=== PATIENT | male | born 1950 | race Caucasian/White ===

== ENCOUNTER 2017-01-15 12:50 | Emergency (ER) | payer SELFPAY ==
--- NOTE | 2017-01-15 13:35 | ED ORDER SUMMARY ---
..... Patient: FIORELLA SHAHID OrderSheet [facility] VisitID: [id number] [place] [address] 66y, M Registration Date/Time: 01/15/2017 ORDER SHEET Weight: 58.9 kg (stated) Allergies: None GENERAL ORDERS: CT Head wo Cont Urgent (12:55 01/15/2017 Gissel Marley) (Ack 13:00 Dia) (13:50 Ruth R.N.) CT Cervical Spine wo Cont Urgent (12:55 01/15/2017 Gissel Marley) (Ack 13:00 Dia) (13:50 Ruth R.N.) Chest 1V Urgent (12:56 01/15/2017 Gissel Marley) (Ack 13:00 Dia) Prosthetic Technician (Continuous) (trauma) (12:56 01/15/2017 Gissel Marley) (Ack 13:00 Dia) (13:14 Ruth R.N.) CBC w Diff Urgent (12:57 01/15/2017 Gissel Marley) (Ack 12:58 Dia) (13:14 Ruth R.N.) CMP Urgent (12:57 01/15/2017 Gissel Marley) (Ack 12:58 Dia) (13:14 Ruth R.N.) UA-Culture if indicated Urgent (12:57 01/15/2017 Gissel Marley) (Ack 12:58 Dia) (13:41 Nakia R.N.) PT with INR Urgent (12:57 01/15/2017 Gissel Marley) (Ack 12:58 Dia) (13:14 Ruth R.N.) PTT Urgent (12:57 01/15/2017 Gissel Marley) (Ack 12:58 Dia) (13:14 Ruth R.N.) D-Dimer Urgent (12:57 01/15/2017 Gissel Marley) (Ack 12:58 Dia) (13:14 Ruth R.N.) Troponin-I Urgent (12:57 01/15/2017 Gissel Marley) (Ack 12:59 Dia) (13:14 KWilliams R.N.) Lipase Urgent (12:57 01/15/2017 Gissel Marley) (Ack 12:59 WAlupis) (13:14 KWilliams R.N.) Ethyl Alcohol Urgent (12:57 01/15/2017 Gissel Marley) (Ack 12:59 Dia) (13:14 Eliseams R.N.) Fibrinogen Level Urgent (12:57 01/15/2017 Gissel Marley) (Ack 12:59 Dia) (13:14 Eliseams R.N.) TSH Urgent (12:57 01/15/2017 Gissel Marley) (Ack 12:59 Dia) (13:15 KWilliams R.N.) Pulse oximeter (12:57 01/15/2017 Gissel Marley) (Ack 13:00 Dia) (13:14 Eliseams R.N.) MEDICATION ORDERS: IV FLUIDS: IV NS : initial bolus 1000 mL (1000 mL/hr), then none - for X1 (NOW) (12:57 01/15/2017 Gissel Marley) (13:41 Nakia R.N.) Fentanyl IV 50 mcg (HIGH ALERT MEDICATION, NOW) (14:00 01/15/2017 Nakia R.N. verbal order read back to Gissel Marley) (14:01 Nakia RMumtazN.) ORDER SHEET NOTES: [Electronically signed by Hernesto Fish Dr. (18:11 01/15/2017)] [Electronically signed by Linus Clay R.N. (18:03 01/17/2017)] [Electronically locked/signed by Linus Clay R.N. (18:03 01/17/2017)]
--- NOTE | 2017-01-15 13:35 | ED NURSING NOTES ---
Clinical Report - Nurses [facility] [place] [address] 01/15/2017 12:49 [id number] Triage time 12:52. Acuity: LEVEL 1. Chief Complaint: WEAKNESS and NUMBNESS and (Left side deficit with numbness). MARITZA COMA SCORE: Henning Coma Scale: 15- eyes open spontaneously (4); best verbal response- oriented x 4 (5); best motor response- obeys commands (6). --13:00 Neris Armas R.N. 12:52 01/15/17. BP: 131/96. HR: 78. RR: 22. O2 saturation: 96%. --13:00 Neris Armas R.N. Weight: 58.9 kg stated. Height/Length: 68 inches Per Patient. BMI: 19.7. --12:56 Neris Armas R.N. Medications None. --12:58 Neris Armas R.N. Allergies None. --12:58 Neris Armas R.N. History Arrived by EMS. Historian: EMS. This started just prior to arrival. PAST MEDICAL HX: No history of diabetes mellitus or hypertension. Immunizations: up-to-date. SOCIAL HX: Heavy alcohol use. History of heavy drug use: methamphetamines. Recently used drugs yesterday. --13:00 Neris Armas R.N. PHYSICAL ASSESSMENT To room via stretcher. GENERAL / NEURO / PSYCH: Appears in distress. The patient is disoriented to situation. Moves extremities with decreased movement of the right upper and left upper extremity. Strength is unequal. She has had weakness. RESPIRATORY: Respirations not labored. SKIN: Skin is warm and dry. --13:01 Neris Armas R.N. NURSING PROGRESS NOTES Patient gowned. Patient transported to CT with nurse and tech. (13:01). --13:01 Neris Amras R.N. Point of care testing: performed by nurse. Glucose: 105. --13:02 Neris Armas R.N. ( assumed care of pt- brought pt back from CT, placed on to monitor, pt in SR on monitor, NIH score completed, pt a/o x 4, speach clear, smells strongly of etoh, states he drinks rafaela 750ml of rum daily, mir being placed and 2nd line established, pt c/o pain "all over" pts oral cavity dried with blood, mouth cleaned with wash cloth, waiting pending labs and ct result for further poc.). --13:23 Linus Clay R.N. 13:23 01/15/17. BP: 126/84. HR: 73. RR: 15. O2 saturation: 96%. Pain level now: 11/23. --13:24 Linus Clay R.N. 13:09 01/15/2017 Site #1 started via IV in the right with an 18g angiocath; one attempt. Blood drawn: rainbow set. Labeled in the presence of the patient and sent to the lab. Saline lock flushed with saline (placed prior to this RN assuming care). --13:24 Linus Clay R.N. 13:25 01/15/2017 Site #2 started via IV forearm with an 18g angiocath; one attempt. Saline lock flushed with 10 mL saline. --13:25 Linus Clay R.N. Cardiac rhythm: (SR). Patient identifiers checked. Call light placed in reach. Side rails up x 2. Bed placed in lowest position. Brakes of bed on. ( ivf infusing as ordered). --13:26 Linus Clay R.N. ( pcxr at bedside). --13:27 Linus Clay R.N. Cardiac rhythm: (SR). Supply Chain Intern provided for the pelvic exam by the physician. ( friend at bedside,). --13:32 Linus Clay R.N. Patient waiting for lab, radiology and CT results. --13:32 Linus Clay R.N. 13:32 01/15/17. BP: 125/92. HR: 76. RR: 21. O2 saturation: 96%. --13:32 Linus Clay R.N. ( MD at bedside explaining results of CT Rad results, pt has C1 C2 fx, plan is to transport to [facility]). --13:35 Linus Clay R.N. ( pt reports last po intake was guest experience captain, 1130, pt drank rum). --13:39 Linus Clay R.N. 13:26 01/15/2017 Started bag #1 1000 mL IV Fluids IV NS (Saline); at 1000 mL/hr via site #2. Allergies verified and confirmed 5 rights. IV patency established. IV site checked: no pain, redness, or swelling. IV flushed thoroughly pre- and post-medication administration (to gravity). --13:41 Linus Clay R.N. Patient waiting for transportation and treatment bed / room and transfer. --13:45 Linus Clay R.N. ( on phone with [facility], preparing transfer sheet). --13:47 Linus Clay R.N. Cardiac rhythm: (SR). ( pt requested his sister Kristie in [place] be notified and oks for information to be provided,). --13:48 Linus Clay R.N. 13:48 01/15/17. BP: 122/85. HR: 76. RR: 21. O2 saturation: 97% on room air. Temp: 97.9 F. Pain level now: 11/23. --13:49 Linus Clay R.N. ( pt reports "my left leg is twitching and hurts" notified with VO for 50mcg fentanyl iv). --13:51 Linus Clay R.N. ( pt has increased movement in left lower extremity, pt requires frequent reminders to remain still, ccollar remains in place). --13:51 Linus Clay R.N. drug abuse technician, pulse oximeter and NIBP monitor placed on patient; cardiac cath tech- Lead II and V5; monitor alarms on (ongoing). 14 fr mir catheter placed. During procedure hand hygiene observed and sterile equipment and aseptic technique used. Return of 200 mL yellow-colored urine; attached to bedside drainage bag positioned below the bladder and secured with velcro and stabilization device. He tolerated procedure well (placed by Blanka DICKSON). Call light placed in reach. Patient waiting for transportation. --13:58 Linus Clay R.N. ( MD updated pt on transfer to [facility]- plan is pt will go air). --13:58 Linus Clay R.N. ( pt reports pain after fentanyl "better" RN remains 1:1 with pt,). --13:59 Linus Clay R.N. MARITZA COMA SCORE: Maritza Coma Scale: 15- eyes open spontaneously (4); best verbal response- oriented x 4 (5); best motor response- obeys commands (6). ABUSE ASSESSMENT: No report of abuse. --14:00 Linus Clay R.N. Reassessment after medication administered (improvement in pain following fentanyl). --14:00 Linus Clay R.N. 13:56 01/15/2017 Fentanyl IVP 50 mcg given. via site #2. Allergies verified, confirmed 5 rights and sedative warning given to the patient and patient's solution specialist. IV patency established. IV site checked: no pain, redness, or swelling. IV flushed thoroughly pre- and post-medication administration. IVP given by RN. --14:01 Linus Clay R.N. 14:04 01/15/17. BP: 132/86. HR: 76. RR: 21. O2 saturation: 97%. Temp: 97.9 F. Pain level now: 08/26. --14:05 Linus Clay R.N. ( chart printed and report faxed to [facility]). --14:06 Linus Clay R.N. Monitoring of patient in place. Patient gowned. Reassurance given to the patient and patient's friends. --14:06 Linus Clay R.N. Patient waiting for transportation and transfer (waiting airlift). --14:07 Linus Clay R.N. Call light placed in reach. Side rails up x 2. Bed placed in lowest position. Brakes of bed on. --14:07 Linus Caly R.N. ( pt remains laying flat, ccollar in place, pt reports improvement in pain down to 2/10, remains a/o x 4, perrla, no change in voice or speech since this RN assumed care, pt cont unable to move his left arm, however reports sensation is equal to right arm.). --14:10 Linus Clay R.N. ( pt reports being thirsty, keeping pt NPO, pts mouth swabbed out with sponge, chapstick applied to lips for comfort.). --14:14 Linus Clay R.N. Patient waiting for transportation and transfer ([facility] eta 1420). --14:16 Linus Clay R.N. 14:18 01/15/17. BP: 125/84. HR: 76. RR: 17. --14:19 Linus Clay R.N. ( airlift arrived in ED). --14:20 Linus Clay R.N. DISPOSITION / DISCHARGE Departure time: 14:Jan 15 2017. Transported via helicopter by nurse and transport team with monitor, defibrillator, IV, O2 and emergency medications. Report was given in person. Report included patient's care, treatment, medications, reviewed medication reconcilliation, and condition (including any recent changes or anticipated changes). (Jasmyn esparza RN). ( pt being transferred to transport [facility]). --14:25 Linus Clay R.N. Departure time: 14:Jan 15 2017. --14:25 Linus Clay R.N. Locked/Released at 01/17/2017 18:03 by Linus Clay R.N.
--- NOTE | 2017-01-15 13:35 | ED ORDER SUMMARY ---
..... Patient: FIORELLA SHAHID OrderSheet [facility] VisitID: [id number] [place] [address] 66y, M Registration Date/Time: 01/15/2017 ORDER SHEET Weight: 58.9 kg (stated) Allergies: None GENERAL ORDERS: CT Head wo Cont Urgent (12:55 01/15/2017 Gissel Marley) (Ack 13:00 Dia) (13:50 Ruth R.N.) CT Cervical Spine wo Cont Urgent (12:55 01/15/2017 Gissel Marley) (Ack 13:00 Dia) (13:50 Ruth R.N.) Chest 1V Urgent (12:56 01/15/2017 Gissel Marley) (Ack 13:00 Dia) Capping Machine Operator (Continuous) (trauma) (12:56 01/15/2017 Gissel Marley) (Ack 13:00 Dia) (13:14 Ruth R.N.) CBC w Diff Urgent (12:57 01/15/2017 Gissel Marley) (Ack 12:58 Dia) (13:14 Ruth R.N.) CMP Urgent (12:57 01/15/2017 Gissel Marley) (Ack 12:58 Dia) (13:14 Ruth R.N.) UA-Culture if indicated Urgent (12:57 01/15/2017 Gissel Marley) (Ack 12:58 Dia) (13:41 Nakia R.N.) PT with INR Urgent (12:57 01/15/2017 Gissel Marley) (Ack 12:58 Dia) (13:14 Ruth R.N.) PTT Urgent (12:57 01/15/2017 Gissel Marley) (Ack 12:58 Dia) (13:14 Ruth R.N.) D-Dimer Urgent (12:57 01/15/2017 Gissel Marley) (Ack 12:58 Dia) (13:14 Ruth R.N.) Troponin-I Urgent (12:57 01/15/2017 Gissel Marley) (Ack 12:59 Dia) (13:14 KWilliams R.N.) Lipase Urgent (12:57 01/15/2017 Gissel Marley) (Ack 12:59 NDlupis) (13:14 KWilliams R.N.) Ethyl Alcohol Urgent (12:57 01/15/2017 Gissel Marley) (Ack 12:59 Dia) (13:14 Eliseams R.N.) Fibrinogen Level Urgent (12:57 01/15/2017 Gissel Marley) (Ack 12:59 Dia) (13:14 Eliseams R.N.) TSH Urgent (12:57 01/15/2017 Gissel Marley) (Ack 12:59 Dia) (13:15 KWilliams R.N.) Pulse oximeter (12:57 01/15/2017 Gissel Marley) (Ack 13:00 Dia) (13:14 Eliseams R.N.) MEDICATION ORDERS: IV FLUIDS: IV NS : initial bolus 1000 mL (1000 mL/hr), then none - for X1 (NOW) (12:57 01/15/2017 Gissel Marley) (13:41 Nakia R.N.) Fentanyl IV 50 mcg (HIGH ALERT MEDICATION, NOW) (14:00 01/15/2017 Nakia R.N. verbal order read back to Gissel Marley) (14:01 Nakia RMumtazN.) ORDER SHEET NOTES: [Electronically signed by Hernesto Fish Dr. (18:11 01/15/2017)] [Electronically signed by Linus Clay R.N. (18:03 01/17/2017)] [Electronically locked/signed by Linus Clay R.N. (18:03 01/17/2017)]
--- NOTE | 2017-01-15 13:35 | ED NURSING NOTES ---
Clinical Report - Nurses [facility] [place] [address] 01/15/2017 12:49 [id number] Triage time 12:52. Acuity: LEVEL 1. Chief Complaint: WEAKNESS and NUMBNESS and (Left side deficit with numbness). MARITZA COMA SCORE: Pelsor Coma Scale: 15- eyes open spontaneously (4); best verbal response- oriented x 4 (5); best motor response- obeys commands (6). --13:00 Neris Armas R.N. 12:52 01/15/17. BP: 131/96. HR: 78. RR: 22. O2 saturation: 96%. --13:00 Neris Armas R.N. Weight: 58.9 kg stated. Height/Length: 68 inches Per Patient. BMI: 19.7. --12:56 Neris Armas R.N. Medications None. --12:58 Neris Armas R.N. Allergies None. --12:58 Neris Armas R.N. History Arrived by EMS. Historian: EMS. This started just prior to arrival. PAST MEDICAL HX: No history of diabetes mellitus or hypertension. Immunizations: up-to-date. SOCIAL HX: Heavy alcohol use. History of heavy drug use: methamphetamines. Recently used drugs yesterday. --13:00 Neris Armas R.N. PHYSICAL ASSESSMENT To room via stretcher. GENERAL / NEURO / PSYCH: Appears in distress. The patient is disoriented to situation. Moves extremities with decreased movement of the right upper and left upper extremity. Strength is unequal. She has had weakness. RESPIRATORY: Respirations not labored. SKIN: Skin is warm and dry. --13:01 Neris Armas R.N. NURSING PROGRESS NOTES Patient gowned. Patient transported to CT with nurse and tech. (13:01). --13:01 Neris Armas R.N. Point of care testing: performed by nurse. Glucose: 105. --13:02 Neris Armas R.N. ( assumed care of pt- brought pt back from CT, placed on to monitor, pt in SR on monitor, NIH score completed, pt a/o x 4, speach clear, smells strongly of etoh, states he drinks rafaela 750ml of rum daily, mir being placed and 2nd line established, pt c/o pain "all over" pts oral cavity dried with blood, mouth cleaned with wash cloth, waiting pending labs and ct result for further poc.). --13:23 Linus Clay R.N. 13:23 01/15/17. BP: 126/84. HR: 73. RR: 15. O2 saturation: 96%. Pain level now: 11/23. --13:24 Linus Clay R.N. 13:09 01/15/2017 Site #1 started via IV in the right with an 18g angiocath; one attempt. Blood drawn: rainbow set. Labeled in the presence of the patient and sent to the lab. Saline lock flushed with saline (placed prior to this RN assuming care). --13:24 Linus Clay R.N. 13:25 01/15/2017 Site #2 started via IV forearm with an 18g angiocath; one attempt. Saline lock flushed with 10 mL saline. --13:25 Linus Clay R.N. Cardiac rhythm: (SR). Patient identifiers checked. Call light placed in reach. Side rails up x 2. Bed placed in lowest position. Brakes of bed on. ( ivf infusing as ordered). --13:26 Linus Clay R.N. ( pcxr at bedside). --13:27 Linus Clay R.N. Cardiac rhythm: (SR). Research And Development Scientist provided for the pelvic exam by the physician. ( friend at bedside,). --13:32 Linus Clay R.N. Patient waiting for lab, radiology and CT results. --13:32 Linus Clay R.N. 13:32 01/15/17. BP: 125/92. HR: 76. RR: 21. O2 saturation: 96%. --13:32 Linus Clay R.N. ( MD at bedside explaining results of CT Rad results, pt has C1 C2 fx, plan is to transport to [facility]). --13:35 Linus Clay R.N. ( pt reports last po intake was seating captain, 1130, pt drank rum). --13:39 Linus Clay R.N. 13:26 01/15/2017 Started bag #1 1000 mL IV Fluids IV NS (Saline); at 1000 mL/hr via site #2. Allergies verified and confirmed 5 rights. IV patency established. IV site checked: no pain, redness, or swelling. IV flushed thoroughly pre- and post-medication administration (to gravity). --13:41 Linus Clay R.N. Patient waiting for transportation and treatment bed / room and transfer. --13:45 Linus Clay R.N. ( on phone with [facility], preparing transfer sheet). --13:47 Linus Clay R.N. Cardiac rhythm: (SR). ( pt requested his sister Kristie in [place] be notified and oks for information to be provided,). --13:48 Linus Clay R.N. 13:48 01/15/17. BP: 122/85. HR: 76. RR: 21. O2 saturation: 97% on room air. Temp: 97.9 F. Pain level now: 11/23. --13:49 Linus Clay R.N. ( pt reports "my left leg is twitching and hurts" notified with VO for 50mcg fentanyl iv). --13:51 Linus Clay R.N. ( pt has increased movement in left lower extremity, pt requires frequent reminders to remain still, ccollar remains in place). --13:51 Linus Clay R.N. mobile solutions architect, pulse oximeter and NIBP monitor placed on patient; cook station- Lead II and V5; monitor alarms on (ongoing). 14 fr mir catheter placed. During procedure hand hygiene observed and sterile equipment and aseptic technique used. Return of 200 mL yellow-colored urine; attached to bedside drainage bag positioned below the bladder and secured with velcro and stabilization device. He tolerated procedure well (placed by Blanka DICKSON). Call light placed in reach. Patient waiting for transportation. --13:58 Linus Clay R.N. ( MD updated pt on transfer to [facility]- plan is pt will go air). --13:58 Linus Clay R.N. ( pt reports pain after fentanyl "better" RN remains 1:1 with pt,). --13:59 Linus Clay R.N. MARITZA COMA SCORE: Maritza Coma Scale: 15- eyes open spontaneously (4); best verbal response- oriented x 4 (5); best motor response- obeys commands (6). ABUSE ASSESSMENT: No report of abuse. --14:00 Linus Clay R.N. Reassessment after medication administered (improvement in pain following fentanyl). --14:00 Linus Clay R.N. 13:56 01/15/2017 Fentanyl IVP 50 mcg given. via site #2. Allergies verified, confirmed 5 rights and sedative warning given to the patient and patient's solar technician. IV patency established. IV site checked: no pain, redness, or swelling. IV flushed thoroughly pre- and post-medication administration. IVP given by RN. --14:01 Linus Clay R.N. 14:04 01/15/17. BP: 132/86. HR: 76. RR: 21. O2 saturation: 97%. Temp: 97.9 F. Pain level now: 08/26. --14:05 Linus Clay R.N. ( chart printed and report faxed to [facility]). --14:06 Linus Clay R.N. Monitoring of patient in place. Patient gowned. Reassurance given to the patient and patient's friends. --14:06 Linus Clay R.N. Patient waiting for transportation and transfer (waiting airlift). --14:07 Linus Clay R.N. Call light placed in reach. Side rails up x 2. Bed placed in lowest position. Brakes of bed on. --14:07 Linus Clay R.N. ( pt remains laying flat, ccollar in place, pt reports improvement in pain down to 2/10, remains a/o x 4, perrla, no change in voice or speech since this RN assumed care, pt cont unable to move his left arm, however reports sensation is equal to right arm.). --14:10 Linus Clay R.N. ( pt reports being thirsty, keeping pt NPO, pts mouth swabbed out with sponge, chapstick applied to lips for comfort.). --14:14 Linus Clay R.N. Patient waiting for transportation and transfer ([facility] eta 1420). --14:16 Linus Clay R.N. 14:18 01/15/17. BP: 125/84. HR: 76. RR: 17. --14:19 Linus Clay R.N. ( airlift arrived in ED). --14:20 Linus Clay R.N. DISPOSITION / DISCHARGE Departure time: 14:Jan 15 2017. Transported via helicopter by nurse and transport team with monitor, defibrillator, IV, O2 and emergency medications. Report was given in person. Report included patient's care, treatment, medications, reviewed medication reconcilliation, and condition (including any recent changes or anticipated changes). (Jasmyn esparza RN). ( pt being [facility]). --14:25 Linus Clay R.N. Departure time: 14:Jan 15 2017. --14:25 Linus Clay R.N. Locked/Released at 01/17/2017 18:03 by Linus Clay R.N.
--- NOTE | 2017-01-15 13:42 | DIAGNOSTIC IMAGING REPORT ---
PROCEDURE: CT CERVICAL SPINE W/O CONTRAST CLINICAL INDICATION: UPPER EXT PAIN/IMMOBILITY TECHNIQUE: Noncontrast axial images with sagittal and coronal reformations. COMPARISON: None. FINDINGS: Fracture of the C1 ring right posterior, nondisplaced Type 2 odontoid fracture with 7 mm posterior displacement of the tip of the odontoid, resulting in mild spinal stenosis. Severe degenerative changes at C4-5, C5-6 and C6-7. No additional fractures. Moderate bilateral C4-5 S5-6 and C6-7 foraminal stenosis. Lung apices are clear. Paraspinal soft tissues are unremarkable. IMPRESSION: 1. Nondisplaced C1 fracture 2. Type 2 odontoid fracture with displacement 3. Results discussed with Dr. Fish All CT scans at this facility use dose modulation, iterative reconstruction, and/or weight-based dosing when appropriate to reduce radiation dose to as low as reasonably achievable.
--- NOTE | 2017-01-15 13:43 | DIAGNOSTIC IMAGING REPORT ---
PROCEDURE: CT HEAD WITHOUT CONTRAST INDICATION: TRAUMA/INJURY TECHNIQUE: Noncontrast axial images with sagittal and coronal reformations. COMPARISON: None. FINDINGS: Motion artifacts. Nondisplaced C1 fracture. Mild cortical atrophy and white matter chronic ischemic changes. Normal ventricular system. No evidence of acute intracranial process. Complete opacification of the left frontal and maxillary sinus. Sinus disease of the bilateral ethmoid sinuses. Mastoids are clear. IMPRESSION: 1. Nondisplaced C1 fracture. See CT cervical spine report. 2. No acute intracranial abnormality 3. Mild atrophy white matter chronic ischemic changes 4. Sinusitis 5. Findings discussed with Dr. Fish at 01:35 p.m., [place] Standard Time
--- NOTE | 2017-01-15 14:04 | DIAGNOSTIC IMAGING REPORT ---
PROCEDURE: XR CHEST 1 VIEW INDICATION: LEFT SIDED WEAKNESS, TRAUMA TECHNIQUE: Portable AP view 01:29 p.m. COMPARISON: None. FINDINGS: Lungs are clear. The patient is rotated which may account for widening of the superior mediastinum. Heart size and pulmonary vessels are normal. Thorax is normal. IMPRESSION: 1. Widening of the superior mediastinum, probably due to rotation. Cannot exclude vascular injury. Correlate clinically 2. Results discussed with Dr. Fish
--- NOTE | 2017-01-17 18:04 | ED MAR SUMMARY ---
..... Medication Administration Record [facility] [address] [place] [address] Patient: FIORELLA SHAHID Visit ID: [id number] 66y, M Weight: 58.9 kg Height/Length: 68 in BMI: 19.7 ALLERGIES: None Start 13:26 01/15/2017 Linus Clay R.N. Medication Administered: IV NS (SALINE), Dose: IV Fluids, Rate: 1000 mL/hr, Dispensed: 1000 mL bag, Site: #2 forearm. Medication Ordered: IV NS : initial bolus 1000 mL (1000 mL/hr), then none - for X1 (NOW). Given 13:56 01/15/2017 Linus Clay R.N. Medication Administered: FENTANYL [IVP], Dose: 50 mcg IVP, Site: #2 forearm. Medication Ordered: Fentanyl IV 50 mcg (HIGH ALERT MEDICATION, NOW).
--- NOTE | 2017-01-17 18:04 | ED MAR SUMMARY ---
..... Medication Administration Record [facility] [address] [place] [address] Patient: FIORELLA SHAHID Visit ID: [id number] 66y, M Weight: 58.9 kg Height/Length: 68 in BMI: 19.7 ALLERGIES: None Start 13:26 01/15/2017 Linus Clay R.N. Medication Administered: IV NS (SALINE), Dose: IV Fluids, Rate: 1000 mL/hr, Dispensed: 1000 mL bag, Site: #2 forearm. Medication Ordered: IV NS : initial bolus 1000 mL (1000 mL/hr), then none - for X1 (NOW). Given 13:56 01/15/2017 Linus Clay R.N. Medication Administered: FENTANYL [IVP], Dose: 50 mcg IVP, Site: #2 forearm. Medication Ordered: Fentanyl IV 50 mcg (HIGH ALERT MEDICATION, NOW).
--- NOTE | 2017-01-17 18:04 | ED MED RECONCILIATION SUMMARY ---
Patient: JONATHAN SHAHIDMPER Medication Reconciliation Report [facility] VisitID: [id number] [address] [place] [address] 66y, M Registration Date/Time: 01/15/2017 Weight: 58.9 kg Height/Length: 68 in. BMI: 19.7 ALLERGIES: None The patient's Home Medications are listed below: NONE. The source(s) of the original Home Medication information: Not obtained. The following Medications were given to the patient in the Emergency Department: IV NS IV Fluids bolus 0, then 1000 mL/hr, administered: 01/15/2017 1:26:00 PM Fentanyl [IVP] IVP 50 mcg, administered: 01/15/2017 1:56:00 PM The following Medications were prescribed to the patient: None.
--- NOTE | 2017-01-17 18:04 | ED CLINICAL REPORT ---
Clinical Report - Physicians/Mid Levels [facility] [address] [place] [address] 01/15/2017 12:49 Patient: FIORELLA SHAHID Time Seen: 1250. Arrived- By ambulance. Historian- patient and EMS personnel. HISTORY OF PRESENT ILLNESS Chief Complaint: FALL. Location of injuries- (right neck). The injury occurred just prior to arrival. Fell (out from vehicle). Occurred at home. The patient complains of moderate pain. The patient complains of neck pain. (weakness to the left side of the body. no facial droop or speech problems.). REVIEW OF SYSTEMS The patient has had new onset of constant, localized numbness of the left arm (moderate), left hand (moderate), left leg (mild) and left foot (mild). He has had weakness. All systems otherwise negative, except as recorded above. PAST HISTORY See nurses notes. Tetanus immunization status is up-to-date. SOCIAL HISTORY Smoker- current status unknown. Alcohol use. History of drug use: methamphetamines. Is a local resident. ADDITIONAL NOTES The nursing notes have been reviewed. PHYSICAL EXAM Vital Signs: 01/15/2017 13:23 BP: 126/84. HR: 73. RR: 15. O2 saturation: 96%. Pain level now: 5/10. 01/15/2017 12:52 BP: 131/96. HR: 78. RR: 22. O2 saturation: 96%. Blood pressure normal. Oxygen saturation normal. Appearance: C-collar in place. Alert. Oriented X3. Patient in mild distress. (non-toxic). Head: Head non-tender. No swelling of head. No Osorio's sign or raccoon eyes. Eyes: Pupils equal, round and reactive to light. Pupillary exam: Right pupil 3mm, round and reactive to light directly and consensually and with accommodation. Left pupil: 3mm, round and reactive to light directly and consensually and with accommodation. EOM intact. ENT: No dental injury. No hemotympanum. Pharynx normal. No malocclusion. (except dark colored material caked on the inside of the mouth). Neck: (posterior midline tenderness at the upper and lower cervical vertebra. no step offs. no crepitus. c-collar in place.). CVS: Heart sounds normal. Pulses normal. Respiratory: No respiratory distress. Breath sounds normal. Chest nontender. No rales, wheezes, rhonchi or crepitus. Abdomen: No visible injury. Soft and nontender. Bowel sounds normal. Back: No tenderness. No vertebral point tenderness or muscle spasm. Skin: Skin intact. Skin warm and dry. Normal skin color. Normal skin turgor. Extremities: Normal inspection. Pelvis stable. Extremities atraumatic. No lower extremity edema. Neuro: Maritza Coma Scale: 15- eyes open spontaneously (4); best verbal response- oriented x 3 (5); best motor response- obeys commands (6). Oriented X 3. No motor deficit. He has had localized weakness of the left arm (severe), left hand (severe), left leg (moderate) and left foot (moderate). No sensory deficit. LABS, X-RAYS, AND EKG Chest X-ray: (PROCEDURE: XR CHEST 1 VIEW INDICATION: LEFT SIDED WEAKNESS, TRAUMA TECHNIQUE: Portable AP view 01:29 p.m. COMPARISON: None. FINDINGS: Lungs are clear. The patient is rotated which may account for widening of the superior mediastinum. Heart size and pulmonary vessels are normal. Thorax is normal. IMPRESSION: 1. Widening of the superior mediastinum, probably due to rotation. Cannot exclude vascular injury. Correlate clinically). The X-rays were independently viewed by me and interpreted by the radiologist. The X-rays were discussed with the radiologist (via phone and pacs). CT C-Spine: (PROCEDURE: CT CERVICAL SPINE W/O CONTRAST CLINICAL INDICATION: UPPER EXT PAIN/IMMOBILITY TECHNIQUE: Noncontrast axial images with sagittal and coronal reformations. COMPARISON: None. FINDINGS: Fracture of the C1 ring right posterior, nondisplaced Type 2 odontoid fracture with 7 mm posterior displacement of the tip of the odontoid, resulting in mild spinal stenosis. Severe degenerative changes at C4-5, C5-6 and C6-7. No additional fractures. Moderate bilateral C4-5 S5-6 and C6-7 foraminal stenosis. Lung apices are clear. Paraspinal soft tissues are unremarkable. IMPRESSION: 1. Nondisplaced C1 fracture 2. Type 2 odontoid fracture with displacement). The study was independently viewed by me and interpreted by the radiologist. The study was discussed with the radiologist (via phone and pacs). CT Head: (PROCEDURE: CT HEAD WITHOUT CONTRAST INDICATION: TRAUMA/INJURY TECHNIQUE: Noncontrast axial images with sagittal and coronal reformations. COMPARISON: None. FINDINGS: Motion artifacts. Nondisplaced C1 fracture. Mild cortical atrophy and white matter chronic ischemic changes. Normal ventricular system. No evidence of acute intracranial process. Complete opacification of the left frontal and maxillary sinus. Sinus disease of the bilateral ethmoid sinuses. Mastoids are clear. IMPRESSION: 1. Nondisplaced C1 fracture. See CT cervical spine report. 2. No acute intracranial abnormality 3. Mild atrophy white matter chronic ischemic changes 4. Sinusitis). The study was independently viewed by me and interpreted by the radiologist. The study was discussed with the radiologist (via pacs and phone). Laboratory Tests: UA-Culture if indicated: (YAN: 01/15/2017 13:23) ( [facility] 01/15/2017 13:39) IP Test Result Flag Units (Reference) URINE COLOR YELLOW URINE APPEARANCE CLEAR URINE GLUCOSE NEGATIVE (NEGATIVE) URINE BILIRUBIN NEGATIVE (NEGATIVE) URINE KETONE NEGATIVE (NEGATIVE) URINE SPECIFIC GRAVITY 1.025 (1.010-1.030) URINE PH 5.5 (5.0-8.0) URINE PROTEIN NEGATIVE (NEGATIVE) URINE UROBILINOGEN 0.2 EU/dL (0.2-1.0) URINE NITRITE NEGATIVE (NEGATIVE) URINE BLOOD TRACE-INTACT (NEGATIVE) URINE LEUK ESTERASE NEGATIVE (NEGATIVE) CBC w Diff: (YAN: 01/15/2017 13:00) ( [facility] 01/15/2017 13:06) Final results Test Result Flag Units (Reference) WHITE BLOOD COUNT 6.3 K/uL (4.5-11.5) RED BLOOD COUNT 4.84 M/uL (4.50-5.90) HEMOGLOBIN 15.9 gm/dL (13.5-17.5) HEMATOCRIT 47.3 % (41.0-53.0) MEAN CELL VOLUME 98 fL (80-100) MEAN CORPUSCULAR HGB 33 pg (26-34) MEAN CORPUSCULAR HGB CONC 34 g/dL (31-37) RED CELL DISTRIBUTION WIDTH 13.7 % (11.6-14.8) PLATELET COUNT 249 K/uL (150-400) NEUTROPHIL % 55.7 % (50-75) LYMPH % 35.2 % (25-40) MONO % 6.5 % (3-14) EOSINOPHIL % 2.0 % (0-4) BASOPHIL % 0.6 % (0-2) PTT: (YAN: 01/15/2017 13:00) ( MsgRcvd 01/15/2017 13:49) IP Test Result Flag Units (Reference) APTT 28 SECONDS (24-34) FIBRINOGEN 212 mg/dL (193-455) D-DIMER QUANTITATIVE 1.26 H ug/mLFEU (0.27-0.52) The primary value of this quantitative assay relates toits negative predictive value (i.e. exclusion) of pulmonaryembolism/deep vein thrombosis/DIC.Elevated levels of d-dimer may also occur with:, age, cancer, inflammation, liver disease,post-op, infection, hematoma, coronary disease, peripheralarteriopathy, bleeding disorders and thrombolytic treatment.Results should be correlated with other clinical andradiological data.Testing Methodology: Latex Immunoassay CMP: (YAN: 01/15/2017 13:00) ( NjgRcvd 01/15/2017 13:49) IP Test Result Flag Units (Reference) GLUCOSE 111 H mg/dL (70-110) BUN 9 mg/dL (7-18) CREATININE 0.9 mg/dL (0.6-1.3) Estimated GFR >60 mL/min Estimated GFR- >60 mL/min Note: Persistent reduction over 3 months in eGFR<60 mL/min/1.73 m2 defines CKD. Patients with eGFR values>=60 mL/min/1.73 m2 may also have CKD if evidence ofpersistent proteinuria. Additional information may be foundat [email or web address].org. SODIUM 142 mmol/L (136-145) POTASSIUM 4.5 mmol/L (3.5-5.1) SLIGHT HEMOLYSIS PRESENT. CHLORIDE 106 mmol/L (98-107) CARBON DIOXIDE 22 mmol/L (21-32) CALCIUM 8.1 L mg/dL (8.5-10.1) TOTAL PROTEIN 7.0 g/dL (6.4-8.2) ALBUMIN 3.1 L g/dL (3.3-5.0) BILIRUBIN, TOTAL 0.4 mg/dL (0.0-1.0) ALKALINE PHOSPHATASE 109 U/L (46-116) AST (SGOT) 37 U/L (15-37) ALT (SGPT) 24 U/L (12-78) LIPASE 309 U/L (73-393) TROPONIN I <0.05 ng/mL (0.00-1.5) TROPONIN REFERENCE RANGE:<0.1 NEGATIVE0.1-1.5 INDETERMINANT>1.5 POSITIVE . PROGRESS AND PROCEDURES Course of Care: he patient is a 66-year-old male presenting for a vaginal traumatic injury to the neck with neurological symptoms. Initially when patient was brought in by EMS, report indicating that the patient was coming in as a code stroke. Patient with injury prior to the onset of his symptoms. Patient with unknown loss of consciousness. Patient states he does not fully remember the event. Full trauma was called. Airway breathing and circulation intact on the emergency department. Patient with focal neurological deficit and concern for spinal cord injury. Patient in c-collar. Patient remained in c-collar while here in the emergency department. CT scan of the head and neck was ordered as well as chest x-ray and laboratory studies. Patient was agreeable to the treatment and plan. The patient workup was unremarkable for the findings above. I had reviewed the patient's CT scan results as soon as they were available on our computer system. Had consulted trauma surgery and asked to the unit support representative to contact the radiologist as soon as possiblefor a read on the patient's concerning CT scan findings. Patient with C1 and C2 fracture noted on my initial evaluation however wanted radiology to evaluate the films immediately as well. Radiology had confirmed mysuspicions. Was able to talk to the trauma service over at [facility]. Patient is to be transferred. We had agreed upon transferring the patient via air. Initially, we were going to arrange transport for the patient however in furtherDiscussing the case with staff,[facility] was using the facility to arrange transport in this situation. the rest of the patient's examination is unremarkable. No other signs of trauma. Transportation was arranged. Patient was transferred. Prior to patient's departure from the emergency department he is noted to be resting in bed and in no acute distress. Patient's examination however neurologically remained unchanged. Informed written consent was obtained for the transfer. Patient is agreeable to the treatment plan. Updated patient on his diagnosis as well as plan of care. All questions have been answered. Patient is agreeable to the treatment and plan. Critical care performed (60 minutes). Time is exclusive of separately billable procedures. Time includes: direct patient care, patient reassessment, coordination of patient care, interpretation of data (laboratory data), review of patient's medical records, medical consultation and documentation of patient care. Consult obtained. [facility] trauma. Disposition: Transferred to [facility]. Condition: guarded. (Electronically signed by Hernesto Fish Dr. 01/15/2017 18:11)
--- NOTE | 2017-01-17 18:04 | ED MED RECONCILIATION SUMMARY ---
Patient: JONATHAN SHAHIDMPER Medication Reconciliation Report [facility] VisitID: [id number] [address] [place] [address] 66y, M Registration Date/Time: 01/15/2017 Weight: 58.9 kg Height/Length: 68 in. BMI: 19.7 ALLERGIES: None The patient's Home Medications are listed below: NONE. The source(s) of the original Home Medication information: Not obtained. The following Medications were given to the patient in the Emergency Department: IV NS IV Fluids bolus 0, then 1000 mL/hr, administered: 01/15/2017 1:26:00 PM Fentanyl [IVP] IVP 50 mcg, administered: 01/15/2017 1:56:00 PM The following Medications were prescribed to the patient: None.
--- NOTE | 2017-01-17 18:04 | ED CLINICAL REPORT ---
Clinical Report - Physicians/Mid Levels Loc[facility] [address] [place] [address] 01/15/2017 12:49 Patient: FIORELLA SHAHID Time Seen: 1250. Arrived- By ambulance. Historian- patient and EMS personnel. HISTORY OF PRESENT ILLNESS Chief Complaint: FALL. Location of injuries- (right neck). The injury occurred just prior to arrival. Fell (out from vehicle). Occurred at home. The patient complains of moderate pain. The patient complains of neck pain. (weakness to the left side of the body. no facial droop or speech problems.). REVIEW OF SYSTEMS The patient has had new onset of constant, localized numbness of the left arm (moderate), left hand (moderate), left leg (mild) and left foot (mild). He has had weakness. All systems otherwise negative, except as recorded above. PAST HISTORY See nurses notes. Tetanus immunization status is up-to-date. SOCIAL HISTORY Smoker- current status unknown. Alcohol use. History of drug use: methamphetamines. Is a local resident. ADDITIONAL NOTES The nursing notes have been reviewed. PHYSICAL EXAM Vital Signs: 01/15/2017 13:23 BP: 126/84. HR: 73. RR: 15. O2 saturation: 96%. Pain level now: 5/10. 01/15/2017 12:52 BP: 131/96. HR: 78. RR: 22. O2 saturation: 96%. Blood pressure normal. Oxygen saturation normal. Appearance: C-collar in place. Alert. Oriented X3. Patient in mild distress. (non-toxic). Head: Head non-tender. No swelling of head. No Osorio's sign or raccoon eyes. Eyes: Pupils equal, round and reactive to light. Pupillary exam: Right pupil 3mm, round and reactive to light directly and consensually and with accommodation. Left pupil: 3mm, round and reactive to light directly and consensually and with accommodation. EOM intact. ENT: No dental injury. No hemotympanum. Pharynx normal. No malocclusion. (except dark colored material caked on the inside of the mouth). Neck: (posterior midline tenderness at the upper and lower cervical vertebra. no step offs. no crepitus. c-collar in place.). CVS: Heart sounds normal. Pulses normal. Respiratory: No respiratory distress. Breath sounds normal. Chest nontender. No rales, wheezes, rhonchi or crepitus. Abdomen: No visible injury. Soft and nontender. Bowel sounds normal. Back: No tenderness. No vertebral point tenderness or muscle spasm. Skin: Skin intact. Skin warm and dry. Normal skin color. Normal skin turgor. Extremities: Normal inspection. Pelvis stable. Extremities atraumatic. No lower extremity edema. Neuro: Maritza Coma Scale: 15- eyes open spontaneously (4); best verbal response- oriented x 3 (5); best motor response- obeys commands (6). Oriented X 3. No motor deficit. He has had localized weakness of the left arm (severe), left hand (severe), left leg (moderate) and left foot (moderate). No sensory deficit. LABS, X-RAYS, AND EKG Chest X-ray: (PROCEDURE: XR CHEST 1 VIEW INDICATION: LEFT SIDED WEAKNESS, TRAUMA TECHNIQUE: Portable AP view 01:29 p.m. COMPARISON: None. FINDINGS: Lungs are clear. The patient is rotated which may account for widening of the superior mediastinum. Heart size and pulmonary vessels are normal. Thorax is normal. IMPRESSION: 1. Widening of the superior mediastinum, probably due to rotation. Cannot exclude vascular injury. Correlate clinically). The X-rays were independently viewed by me and interpreted by the radiologist. The X-rays were discussed with the radiologist (via phone and pacs). CT C-Spine: (PROCEDURE: CT CERVICAL SPINE W/O CONTRAST CLINICAL INDICATION: UPPER EXT PAIN/IMMOBILITY TECHNIQUE: Noncontrast axial images with sagittal and coronal reformations. COMPARISON: None. FINDINGS: Fracture of the C1 ring right posterior, nondisplaced Type 2 odontoid fracture with 7 mm posterior displacement of the tip of the odontoid, resulting in mild spinal stenosis. Severe degenerative changes at C4-5, C5-6 and C6-7. No additional fractures. Moderate bilateral C4-5 S5-6 and C6-7 foraminal stenosis. Lung apices are clear. Paraspinal soft tissues are unremarkable. IMPRESSION: 1. Nondisplaced C1 fracture 2. Type 2 odontoid fracture with displacement). The study was independently viewed by me and interpreted by the radiologist. The study was discussed with the radiologist (via phone and pacs). CT Head: (PROCEDURE: CT HEAD WITHOUT CONTRAST INDICATION: TRAUMA/INJURY TECHNIQUE: Noncontrast axial images with sagittal and coronal reformations. COMPARISON: None. FINDINGS: Motion artifacts. Nondisplaced C1 fracture. Mild cortical atrophy and white matter chronic ischemic changes. Normal ventricular system. No evidence of acute intracranial process. Complete opacification of the left frontal and maxillary sinus. Sinus disease of the bilateral ethmoid sinuses. Mastoids are clear. IMPRESSION: 1. Nondisplaced C1 fracture. See CT cervical spine report. 2. No acute intracranial abnormality 3. Mild atrophy white matter chronic ischemic changes 4. Sinusitis). The study was independently viewed by me and interpreted by the radiologist. The study was discussed with the radiologist (via pacs and phone). Laboratory Tests: UA-Culture if indicated: (YAN: 01/15/2017 13:23) ( [facility] 01/15/2017 13:39) IP Test Result Flag Units (Reference) URINE COLOR YELLOW URINE APPEARANCE CLEAR URINE GLUCOSE NEGATIVE (NEGATIVE) URINE BILIRUBIN NEGATIVE (NEGATIVE) URINE KETONE NEGATIVE (NEGATIVE) URINE SPECIFIC GRAVITY 1.025 (1.010-1.030) URINE PH 5.5 (5.0-8.0) URINE PROTEIN NEGATIVE (NEGATIVE) URINE UROBILINOGEN 0.2 EU/dL (0.2-1.0) URINE NITRITE NEGATIVE (NEGATIVE) URINE BLOOD TRACE-INTACT (NEGATIVE) URINE LEUK ESTERASE NEGATIVE (NEGATIVE) CBC w Diff: (YAN: 01/15/2017 13:00) ( [facility] 01/15/2017 13:06) Final results Test Result Flag Units (Reference) WHITE BLOOD COUNT 6.3 K/uL (4.5-11.5) RED BLOOD COUNT 4.84 M/uL (4.50-5.90) HEMOGLOBIN 15.9 gm/dL (13.5-17.5) HEMATOCRIT 47.3 % (41.0-53.0) MEAN CELL VOLUME 98 fL (80-100) MEAN CORPUSCULAR HGB 33 pg (26-34) MEAN CORPUSCULAR HGB CONC 34 g/dL (31-37) RED CELL DISTRIBUTION WIDTH 13.7 % (11.6-14.8) PLATELET COUNT 249 K/uL (150-400) NEUTROPHIL % 55.7 % (50-75) LYMPH % 35.2 % (25-40) MONO % 6.5 % (3-14) EOSINOPHIL % 2.0 % (0-4) BASOPHIL % 0.6 % (0-2) PTT: (YAN: 01/15/2017 13:00) ( MsgRcvd 01/15/2017 13:49) IP Test Result Flag Units (Reference) APTT 28 SECONDS (24-34) FIBRINOGEN 212 mg/dL (193-455) D-DIMER QUANTITATIVE 1.26 H ug/mLFEU (0.27-0.52) The primary value of this quantitative assay relates toits negative predictive value (i.e. exclusion) of pulmonaryembolism/deep vein thrombosis/DIC.Elevated levels of d-dimer may also occur with:, age, cancer, inflammation, liver disease,post-op, infection, hematoma, coronary disease, peripheralarteriopathy, bleeding disorders and thrombolytic treatment.Results should be correlated with other clinical andradiological data.Testing Methodology: Latex Immunoassay CMP: (YAN: 01/15/2017 13:00) ( CtgRcvd 01/15/2017 13:49) IP Test Result Flag Units (Reference) GLUCOSE 111 H mg/dL (70-110) BUN 9 mg/dL (7-18) CREATININE 0.9 mg/dL (0.6-1.3) Estimated GFR >60 mL/min Estimated GFR- >60 mL/min Note: Persistent reduction over 3 months in eGFR<60 mL/min/1.73 m2 defines CKD. Patients with eGFR values>=60 mL/min/1.73 m2 may also have CKD if evidence ofpersistent proteinuria. Additional information may be foundat [email or web address].org. SODIUM 142 mmol/L (136-145) POTASSIUM 4.5 mmol/L (3.5-5.1) SLIGHT HEMOLYSIS PRESENT. CHLORIDE 106 mmol/L (98-107) CARBON DIOXIDE 22 mmol/L (21-32) CALCIUM 8.1 L mg/dL (8.5-10.1) TOTAL PROTEIN 7.0 g/dL (6.4-8.2) ALBUMIN 3.1 L g/dL (3.3-5.0) BILIRUBIN, TOTAL 0.4 mg/dL (0.0-1.0) ALKALINE PHOSPHATASE 109 U/L (46-116) AST (SGOT) 37 U/L (15-37) ALT (SGPT) 24 U/L (12-78) LIPASE 309 U/L (73-393) TROPONIN I <0.05 ng/mL (0.00-1.5) TROPONIN REFERENCE RANGE:<0.1 NEGATIVE0.1-1.5 INDETERMINANT>1.5 POSITIVE . PROGRESS AND PROCEDURES Course of Care: he patient is a 66-year-old male presenting for a vaginal traumatic injury to the neck with neurological symptoms. Initially when patient was brought in by EMS, report indicating that the patient was coming in as a code stroke. Patient with injury prior to the onset of his symptoms. Patient with unknown loss of consciousness. Patient states he does not fully remember the event. Full trauma was called. Airway breathing and circulation intact on the emergency department. Patient with focal neurological deficit and concern for spinal cord injury. Patient in c-collar. Patient remained in c-collar while here in the emergency department. CT scan of the head and neck was ordered as well as chest x-ray and laboratory studies. Patient was agreeable to the treatment and plan. The patient workup was unremarkable for the findings above. I had reviewed the patient's CT scan results as soon as they were available on our computer system. Had consulted trauma surgery and asked to the community outreach specialist to contact the radiologist as soon as possiblefor a read on the patient's concerning CT scan findings. Patient with C1 and C2 fracture noted on my initial evaluation however wanted radiology to evaluate the films immediately as well. Radiology had confirmed mysuspicions. Was able to talk to the trauma service over at [facility]. Patient is to be transferred. We had agreed upon transferring the patient via air. Initially, we were going to arrange transport for the patient however in furtherDiscussing the case with staff,[facility] was using the facility to arrange transport in this situation. the rest of the patient's examination is unremarkable. No other signs of trauma. Transportation was arranged. Patient was transferred. Prior to patient's departure from the emergency department he is noted to be resting in bed and in no acute distress. Patient's examination however neurologically remained unchanged. Informed written consent was obtained for the transfer. Patient is agreeable to the treatment plan. Updated patient on his diagnosis as well as plan of care. All questions have been answered. Patient is agreeable to the treatment and plan. Critical care performed (60 minutes). Time is exclusive of separately billable procedures. Time includes: direct patient care, patient reassessment, coordination of patient care, interpretation of data (laboratory data), review of patient's medical records, medical consultation and documentation of patient care. Consult obtained. [facility] trauma. Disposition: Transferred to [facility]. Condition: guarded. (Electronically signed by Hernesto Fish Dr. 01/15/2017 18:11)
== END 2017-01-15 14:24 | disposition short-term general hospital (02) ==
LOC: EDSEX 12:50 → ED SRH 12:50
DX: S12.001A Unspecified nondisplaced fracture of first cervical vertebra, initial encounter for closed fracture (principal); S12.101A Unspecified nondisplaced fracture of second cervical vertebra, initial encounter for closed fracture; W17.89XA Other fall from one level to another, initial encounter; V89.9XXA Person injured in unspecified vehicle accident, initial encounter; Y93.9 Activity, unspecified; Y99.9 Unspecified external cause status; Y92.009 Unspecified place in unspecified non-institutional (private) residence as the place of occurrence of the external cause; F10.10 Alcohol abuse, uncomplicated
CPT/HCPCS: 90004; 90100; 90616; 91556; 92010; 92235; 93140; 94001; 94050; 94060; 95059